=== PATIENT | female | born 1945 | race Two or more races ===

== ENCOUNTER 2019-01-09 12:00 | Emergency (ER) | payer OTHER ==
[~2019-01-09] VITALS: Ht 157.5 cm; Wt 117.9 kg
[2019-01-09] MEDS ORDERED: SODIUM CHLORIDE 0.9% 1,000 ML IV ONE (12:17)
[2019-01-09 14:41] LABS: Hemoglobin 8.4 g/dL (12.2-16.2)
[2019-01-09 14:42] LABS: Urine Bacteria MANY /hpf (None Seen); Urine Blood Negative /uL (Negative); Urine Specific Gravity 1.012 (1.001-1.035); Urine WBC 139 /hpf (0 - 5)
[2019-01-09 14:43] LABS: Hematocrit 26.1 % (36.0-46.0); Mean Corpuscular Hemoglobin 28.3 pg (28.0-32.0); Mean Corpuscular Hgb Conc. 32.2 g/dL (32.0-36.0); Mean Corpuscular Volume 87.9 fL (80.0-100.0); Platelet Count (auto) 350 10^3/uL (140-450); Red Blood Cells 2.97 10^6/uL (4.0-5.20); White Blood Cell 8.1 10^3/uL (4.4-10.8)
[2019-01-09 14:55] LABS: Albumin 2.3 g/dL (3.4-5.0); Anion Gap 8 (5-15); Blood Urea Nitrogen 25 mg/dL (7-18); Calcium 8.8 mg/dL (8.5-10.1); Carbon Dioxide 24 mmol/L (21-32); Chloride 109 mmol/L (98-107); Glucose 111 mg/dL (74-106); Magnesium 1.8 mg/dL (1.6-2.6); Potassium 4.5 mmol/L (3.5-5.1); Sodium 141 mmol/L (136-145)
[2019-01-09 14:58] LABS: INR 1.03 (0.9-1.15); Partial Thromboplastin Time 28.2 sec (23.78-33.04); Red Cell Distribution Width 21.8 % (11.8-14.3)
[2019-01-09 14:59] LABS: Band Neutrophils % (manual) 0; Basophils % (manual) 0 (0.0-2.0); Blast Cells 0; Metamyelocytes % 0; Myelocytes % 0; Promyelocytes % 0; Reactive Lymphocytes 0
[2019-01-09 15:02] LABS: Alanine Aminotransferase 22 U/L (13-56); Alkaline Phosphatase 114 U/L (45-117); Aspartate Aminotransferase 16 U/L (15-37); BUN/Creatinine Ratio 22.7; Bilirubin, Total 0.5 mg/dL (0.2-1.0); GFR African American 63 mL/min; GFR Non-African American 52 mL/min; Total Protein 6.7 g/dL (6.4-8.2)
[2019-01-09] MEDS ORDERED: cefTRIAXone 1GM/50ML D5W 50 ML IV ONE (15:30)
[2019-01-09 18:38] LABS: Eosinophils % (manual) 2 (0-7); Lymphocytes % (manual) 23 (10.0-50.0); Monocytes % (manual) 12 (0-12)
[2019-01-09 22:22] VITALS: BP 133/61
== END 2019-01-09 23:15 ==
LOC: ER 12:00
DX: R41.82 Altered mental status, unspecified (principal); N39.0 Urinary tract infection, site not specified; E86.0 Dehydration; D64.9 Anemia, unspecified; E11.9 Type 2 diabetes mellitus without complications; I10 Essential (primary) hypertension; Z88.6 Allergy status to analgesic agent; Z87.891 Personal history of nicotine dependence; Z86.73 Personal history of transient ischemic attack (TIA), and cerebral infarction without residual deficits; Z98.890 Other specified postprocedural states
CPT/HCPCS: 36415; 51702; 70450; 71045; 80053; 81001; 82962; 83605; 83735; 84484; 85007; 85027; 85610; 85730; 87040; 93005; 94761; 96361; 96365; 99285; J0696; J7030

== ENCOUNTER 2019-05-31 01:02 | Inpatient (IN) | payer OTHER ==
[~2019-05-31] VITALS: Ht 172.7 cm; Wt 64.1 kg
[2019-05-31] MEDS ORDERED: DEXTROSE 50% SYRINGE 50 ML IV ONE (01:56)
[2019-05-31] MEDS ORDERED: DEXTROSE (50%) 50ML SYRG IV ONE ×2 (02:15→04:45)
[2019-05-31 03:01] LABS: Urine Bacteria NONE SEEN /hpf (None Seen); Urine Blood Negative /uL (Negative); Urine Specific Gravity 1.008 (1.001-1.035); Urine WBC 10 /hpf (0 - 5)
[2019-05-31 03:05] LABS: Alanine Aminotransferase 11 U/L (13-56); Albumin 3.2 g/dL (3.4-5.0); Anion Gap 11 (5-15); Aspartate Aminotransferase 8 U/L (15-37); BUN/Creatinine Ratio 14.5; Blood Urea Nitrogen 11 mg/dL (7-18); Calcium 8.7 mg/dL (8.5-10.1); Carbon Dioxide 22 mmol/L (21-32); Chloride 112 mmol/L (98-107); GFR African American 96 mL/min; GFR Non-African American 80 mL/min; Potassium 3.3 mmol/L (3.5-5.1); Sodium 145 mmol/L (136-145)
[2019-05-31 03:18] LABS: Alkaline Phosphatase 77 U/L (45-117); Bilirubin, Total 0.2 mg/dL (0.2-1.0); Total Protein 6.8 g/dL (6.4-8.2)
[2019-05-31 03:30] LABS: Glucose 23 mg/dL (74-106)
[2019-05-31 03:43] LABS: Basophils # (auto) 0 uL; Eosinophils # (auto) 0.3 uL; Lymphocytes # (auto) 1.4 uL; Monocytes # (auto) 0.6 uL
[2019-05-31 03:46] LABS: Basophils % (auto) 0.5 % (0.0-2.0); Eosinophils % (auto) 3.7 % (0.0-7.0); Hemoglobin 11.3 g/dL (12.2-16.2); Lymphocytes % (auto) 18.9 % (10.0-50.0); Mean Corpuscular Hemoglobin 25.7 pg (28.0-32.0); Mean Corpuscular Hgb Conc. 32.3 g/dL (32.0-36.0); Mean Corpuscular Volume 79.6 fL (80.0-100.0); Monocytes % (auto) 7.4 % (0.0-12.0); Neutrophils # (auto) 5.3 uL; Neutrophils % (auto) 69.5 % (37.0-80.0); Nucleated Red Blood Cells % 0.1 %; Platelet Count (auto) 386 10^3/uL (140-450); White Blood Cell 7.7 10^3/uL (4.4-10.8)
[2019-05-31 03:49] LABS: Red Cell Distribution Width 21.9 % (11.8-14.3)
[2019-05-31] MEDS ORDERED: D5W/SOD CHL 0.45% 1,000 ML IV ONE (04:45)
[2019-05-31] MEDS ORDERED: LABETALOL HCL 5 MG/ML ML 20ML VIAL IV PRN (10:30)
[2019-05-31] MEDS ORDERED: MORPHINE SULF INJ 2 MG/ML SYRINGE 1ML IV PRN (10:30)
[2019-05-31] MEDS ORDERED: ONDANSETRON HCL 4 MG/2 ML VIAL IV PRN (10:30)
[2019-05-31] MEDS ORDERED: traMADol HCL 50 MG TAB PO PRN (10:30)
[2019-05-31] MEDS ORDERED: LACTULOSE 20Gm/30ML SOLN PO PRN (10:30)
[2019-05-31] MEDS ORDERED: NITROGLYCERIN 0.4 MG SL TAB SL PRN (10:30)
[2019-05-31] MEDS ORDERED: ACETAMINOPHEN 500 MG TAB PO PRN (10:30)
[2019-05-31] MEDS ORDERED: DEXTROSE (50%) 50ML SYRG IV PRN (10:30)
[2019-05-31] MEDS ORDERED: PANTOPRAZOLE 40 MG TAB PO ONE (10:45)
[2019-05-31] MEDS ORDERED: cefTRIAXone 1GM/50ML D5W 50 ML IV ONE (10:45)
[2019-05-31] MEDS: ACCU-CHEK COMFORT CURVE STRIP VI SCH ×3 (12:20→19:57)
[2019-05-31] MEDS ORDERED: LABE200T18 (15:32)
[2019-05-31] MEDS ORDERED: HYDR-4296 (15:32)
[2019-05-31] MEDS ORDERED: NIFE20CA (15:32)
[2019-05-31 16:24] LABS: INR 0.97 (0.9-1.15)
[2019-05-31 17:12] VITALS: BP 150/72
--- NOTE | 2019-05-31 18:12 | NUR ---
WOUND CARE NOTE: Wound care in to see patient per wound care request regarding "wound to sacrum" that are noted present on admission. Beto nurse took photograph of patient's wound upon admission for reference. Patient is 73 years old female with admitting diagnosis of ALOC, Hypoglycemia, UTI with Encephalopathy. Patient has history of CVA, DM, htn. Patient is resting in bed in Rm 248B. She's awake and oriented to self. Patient is in no stated pain at this time and appears to be in no pain using [place] Clifford Faces Pain Scale. She's max assist in turning and repositioning. Her current Teo score is 12. Skin/wound assessment done with the assistance of patient's nurse, BOUBACAR Prado. Noted 3x 1.5cm open full thickness wound with no measurable depth to patient's coccyx. Wound is red with granulation tissue noted, wound edges is pale pink, jorge wound is bright and dark red, scant serous drainage noted, no odor noted. 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 Cleansed wound with wound cleanser,patted dry with gauze, applied Thera honey gel and covered wound with Opti foam gentle dressing. No other wound noted other than scratches to hips and thighs. Patient tolerated well, repositioned patient for comfort facing her Lt side, redistributed pressure points with pillows and elevated heels on pillows. Bed in low position with all safety precautions in placed. RECOMMENDATION: Daily/PRN dressing change to coccyx wound per MD order, dietary consult,frequent turning and repositioning schedule as condition permits, redistribute pressure points with pillows, air mattress (ordered), elevate heels on pillows, continue monitoring by wound care while patient is hospitalized. Addendum: 05/31/19 at 1839 by Lesa Aguilera RN Amended: Links added.
--- NOTE | 2019-05-31 19:05 | NUR ---
ASSUMED PATIENT CARE- NOC SHIFT PATIENT IS IN BED, BED IS LOCKED IN LOWEST POSITION, BED RAILS UP X2, HEAD OF BED IS UP >30 DEGREES FOR SAFETY PRECAUTIONS. PATIENT IS ALERT ONLY TO SELF. PATIENT IS WEARING MITTENS TO PREVENT HER FROM PULLING HER OXYGEN TUBING AND IV LINE AFTER SEVERAL ATTEMPTS PER REPORT; WILL REQUEST PATIENT TO HAVE NURSE GETTERING FILAMENT MACHINE OPERATOR AT BEDSIDE. REPOSITIONED PATIENT IN BED WITH PARTIAL LINEN CHANGE; PATIENT TOLERATED WELL. WILL CONTINUE TO MONITOR.
--- NOTE | 2019-05-31 20:00 | NUR ---
PATIENT PLACED ON SCDs ORDERED PER MD.
[2019-05-31 20:05] VITALS: BP 140/90
--- NOTE | 2019-05-31 21:35 | NUR ---
WOUND CARE PROVIDED TO SACRAL ULCER. OPTIFOAM CHANGED, INITIALED, DATED AND TIMED. PATIENT TOLERATED WELL.
--- NOTE | 2019-05-31 21:55 | NUR ---
PATIENT WAS MOVED TO 246A IN ORDER TO PROVIDE NURSE LOG CHAIN WORKER AT BEDSIDE FOR PATIENT. PATIENT WAS PULLING ON O2 LINE AND IV. PATIENT TOLERATED MOVE WELL.
--- NOTE | 2019-05-31 22:00 | NUR ---
PATIENT WAS PLACED ON SPECIALTY MATTRESS.
[2019-06-01] MEDS: ACCU-CHEK COMFORT CURVE STRIP VI SCH ×4 (00:18→12:51)
--- NOTE | 2019-06-01 07:03 | NUR ---
CLOSING NOTE PATIENT IS COMFORTABLE IN BED, BREATHING IS EVEN AND UNLABORED. NURSE NURSE PRACTITIONER PHYSICIANS ASSISTANT AT BEDSIDE FOR SAFETY PRECAUTIONS.
--- NOTE | 2019-06-01 08:00 | NUR ---
Opening Shift Note Assumed care of patient, awake and confused. No S/S of distress/SOB or pain. Sitter at bedside. IWill continue to monitor for changes Q1hr and PRN.
[2019-06-01 09:00] VITALS: BP 139/104
[2019-06-01] MEDS ORDERED: cefTRIAXone 1GM/50ML D5W 50 ML IV SCH (09:00)
[2019-06-01] MEDS ORDERED: PANTOPRAZOLE 40 MG TAB PO SCH (10:00)
[2019-06-01 10:55] LABS: Calcium 8.8 mg/dL (8.5-10.1); Potassium 3.6 mmol/L (3.5-5.1)
--- NOTE | 2019-06-01 11:20 | NUR ---
DR. Alejandre at bedside. POC explained to family.
--- NOTE | 2019-06-01 14:30 | NUR ---
Discharge instructions given as ordered. Encourage to follow up with PMD as instructed. All questions and concerns addressed. Patient verbalized understanding. Medication reconciliation form completed and copy given to patient. IV removed with catheter intact, pressure dressing applied, godoy catheter removed. Telemetry unit returned to [facility]. Patient taken to vehicle via wheelchair with all personal belongings, accompanied by staff and family member. No distress noted at time of departure.
[2019-06-01 22:48] VITALS: BP 116/72
== END 2019-06-01 14:27 | disposition home or self-care (01) | DRG 637 ==
LOC: EDBD 01:02 → ER 01:06 → TELE 01:07 → TELE-EAST 13:50
PROVIDERS: ADMIT Internal Medicine; ATTEND Internal Medicine
DX: E11.649 Type 2 diabetes mellitus with hypoglycemia without coma (principal); G93.41 Metabolic encephalopathy; N39.0 Urinary tract infection, site not specified; F09 Unspecified mental disorder due to known physiological condition; F03.90 Unspecified dementia, unspecified severity, without behavioral disturbance, psychotic disturbance, mood disturbance, and anxiety; I10 Essential (primary) hypertension; Z79.4 Long term (current) use of insulin; Z83.3 Family history of diabetes mellitus; Z87.891 Personal history of nicotine dependence; Z86.73 Personal history of transient ischemic attack (TIA), and cerebral infarction without residual deficits; Z99.3 Dependence on wheelchair; Z88.5 Allergy status to narcotic agent
CPT/HCPCS: 36415; 70450; 80048; 80053; 81001; 82010; 82962; 83605; 83735; 84484; 85025; 85610; 87040; 87086; 93005; 96361; 96365; 96366; G0378; J0696